=== PATIENT | female | born 1980 | race Caucasian/White ===

== ENCOUNTER 2016-12-23 09:38 | Emergency (ER) | payer BC ==
--- NOTE | 2016-12-23 10:10 | ERNOTE ---
Psychological HPI - Date Date of Service: 12/23/16 - General Chief Complaint: General Assessment Source: Reports: patient, RN notes reviewed, past records Exam Limitations: Reports: no limitations - Immun/Allergies/Home Medications Allergies/Adverse Reactions: Allergies doxycycline Allergy (Verified 12/23/16 09:47) erythromycin base Allergy (Verified 12/23/16 09:47) Home Medications: HOME MEDICATIONS Nabumetone 750 mg PO BID 10/09/15 [Last Taken Unknown] Nitrofurantoin Macrocrystal [Macrodantin] 100 mg PO QID 10/09/15 [Last Taken Unknown] ALPRAZolam [Xanax] 0.25 mg PO TID PRN #30 tablet 12/23/16 [Last Taken Unknown] - History of Present Illness Narrative: Marla is a 36 year old female ambulatory to the ED for anxiety and excessive stress related to multiple situations in her life. She attempted to see her PCP today but he is out of the office. She has been prescribed Xanax in the past for similar symptoms. She reports usually only taking it at bedtime, and that 90 tablets lasted her almost a year. She has currently been taking Z-quil for sleep but it is not working well. She lives with her boyfriend and his 21 year old daughter who has been difficult for them to deal with. She has also been in a difficult situation at work and has had to take on additional responsibilities due to a situation with another employee. She reports that her boyfriend and her boss are both very supportive and wanted her to get some help. She denies suicidal thoughts currently, but has had thoughts about harming herself in the past. She has never had a specific plan. She currently feels as though "I just don't want to be here." Time Seen by Provider: 12/23/16 09:50 Arrived by: Reports: private car Onset/duration: Reports: gradual onset Intent: Reports: prior thoughts of suicide, wants to escape. Denies: suicide Mechanism: Reports: other - No plan Situational Problems: Reports: significant other, daughter, work Associated Symptoms: Reports: depressed, frustrated. Denies: angry, agitated, hostile, suicidal thoughts, specific plan, made attempt Prior Treament: Reports: treated by physician, similar symptoms before. Denies : recently seen Review of Systems - Review of Systems Constitutional: Present: fatigue. Absent: recent illness, fever, malaise EYE: Present: no symptoms reported ENT: Present: no symptoms reported Respiratory: Present: no symptoms reported Cardiology: Absent: chest pain, palpitations Gastrointestinal/Abdominal: Absent: nausea, abdominal pain Genitourinary: Present: no symptoms reported Musculoskeletal: Absent: muscle pain, joint pain Skin: Present: no symptoms reported Neurological: Absent: headache, dizziness/light-headedness Endocrine: Absent: intolerance to cold, unexplained weight gain Hematologic/Lymphatic: Present: no symptoms reported Psych: Present: anxiety, depressed - Patient's Past Medical History Patient History - Medical: Fibromyalgia, Rheumatoid Arthritis Patient History - Cardiac/Respiratory: No pertinent hx Patient History - Cancer: No Hx of Cancer Patient History - Surgical Procedures: Cholecystectomy, Hysterectomy, Orthopedic Patient History - Other: None LMP (females 10-50): s/p hyst - Social History Living Situations: significant other Abuse History: No History of abuse Psych History: No pertinent hx Smoking Status: Never smoker Alcohol Use: rarely Drug Use: none Physical Exam - Physical Exam General Appearance: Present: wd/wn, alert, mild distress, crying Eye Exam: Normal inspection: bilateral Respiratory: Present: no respiratory distress, normal breath sounds, no accessory muscle use, lungs clear Cardiovascular/Chest: Present: regular rate, rhythm, no murmur, normal peripheral pulses Neurological Exam: Present: alert, oriented, no motor/sensory deficits, other - tearful, depressed appearing. Absent: normal mood/affect Skin Exam: Present: normal color, warm/dry ED Progress - Vital Signs Patient's Vital Signs:: I have reviewed the patient's vital signs. Vital Signs: Vital Signs 12/23/16 09:42 Temperature 36.3 C L Pulse Rate 88 Respiratory 12 Rate Blood Pressure 125/100 O2 Sat by Pulse 99 Oximetry - Progress/Reassessment Chief Complaint: General Assessment Progress:: Improved Plan - Plan Plan: Rx given for 30 tabs Xanax 0.25mg that she has taken in the past on a limited basis. 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 Recommended counseling, contact info for [facility] given. Follow up scheduled with Dr. Loving next week. Departure Clinical Impression: Acute anxiety - Departure Disposition: Home Follow Up Needed Condition: Stable Instructions: Panic Attacks, [id number], Form - Excuse from Work, School, or Physical Activity Additional Instructions: Take Xanax only as needed - can also break tablets in half Follow up with Dr. Loving as scheduled Consider counseling Return to ER if symptoms worsen in the meantime - especially if you are having thoughts about harming yourself Referrals: Sreedhar Loving MD [Primary Care Provider] - 01/03/17 8:00 am Prescriptions: ALPRAZolam [Xanax] 0.25 mg PO TID PRN #30 tablet PRN Reason: Anxiety
[2016-12-23 10:49] VITALS: BP 132/76
== END 2016-12-23 10:43 | disposition home or self-care (01) ==
LOC: ER 09:38
DX: F41.9 Anxiety disorder, unspecified (principal); M06.9 Rheumatoid arthritis, unspecified